=== PATIENT | female | born 1965 | race Caucasian/White ===

== ENCOUNTER → 2016-05-20 | Outpatient (CLI) | payer BC ==
[~2016-05-20] MED LIST: ACET1CAP16 PO; BCPILLS PO; CLA PO; COENZYME Q10 PO; MAGNESIUM PO; MISCCAP80 PO; MULT-506 PO; VITAMIN D PO; VITATAB8 PO; [UNRECOGNIZED DRUG - OTHER] PO; [UNRECOGNIZED DRUG - OTHER] PO
[2016-05-24 17:58] LABS: BEEF CLASS 0; BEEF IGE <0.10 KU/L; CHOCOLATE CLASS 0; CHOCOLATE IGE <0.10 KU/L; CLAM CLASS 0; CLAM IGE <0.10 KU/L; CORN CLASS 0; CORN IGE <0.10 KU/L; CRAB CLASS 0; CRAB IGE <0.10 KU/L; EGG MIX CLASS 0; EGG MIX IGE <0.10 KU/L; LOBSTER CLASS 0; LOBSTER IGE <0.10 KU/L; PEANUT IGE <0.10 KU/L; PORK CLASS 0; PORK IGE <0.10 KU/L; SHRIMP CLASS 0; SOY CLASS 0; SOY IGE <0.10 KU/L; WHEAT CLASS 0; WHEAT IGE <0.10 KU/L
== END | disposition home or self-care (01) ==
LOC: C.LAB 14:31
PROVIDERS: ATTEND Family Medicine
DX: E73.9 Lactose intolerance, unspecified (principal)

== ENCOUNTER → 2016-06-01 | Outpatient (CLI) | payer BC ==
[2016-06-01 14:40] LABS: BASO % 0.2 %; BASO ABS # 0.02 K/uL (0-0.2); COMPLETE YES; EOS % 1.5 %; IG% 0.1 %; LYMPH % 32.2 %; LYMPH ABS # 2.62 K/uL (1.2-3.4); MEAN CELL VOLUME 89.9 fL (80-100); MEAN CORPUSCULAR HEMOGLOBIN 31.3 pg (25-34); MEAN CORPUSCULAR HGB CONC 34.8 g/dl (32-36); MEAN PLATELET VOLUME 10.3 fL (7.4-10.4); MONO % 9.2 %; NEUT % 56.8 %; PLATELET COUNT 261 K/uL (130-400); RED BLOOD COUNT 3.67 M/uL (4.2-5.4); WHITE BLOOD COUNT 8.14 K/uL (4.8-10.8)
== END | disposition home or self-care (01) ==
LOC: C.LAB1850 13:51
PROVIDERS: ATTEND Internal Medicine
DX: D64.9 Anemia, unspecified (principal); R89.4 Abnormal immunological findings in specimens from other organs, systems and tissues

== ENCOUNTER → 2016-06-05 | Day surgery (SDC) | payer BC ==
[2016-05-27 10:11] VITALS: Ht 175.3 cm; Wt 70.5 kg
[~2016-06-05] VITALS: Ht 175.3 cm; Wt 70.5 kg
[~2016-06-05] MED LIST changes: +LIDOCAINE HCL 2% 2 ML VIAL (20MG/ML) ONE; +MIDAZOLAM HCL 1 MG/ML 2ML VIAL ONE; +PROPOFOL IV EMULSION 10 MG/ML 20 ML VIAL IV ONE
--- NOTE | 2016-06-05 08:52 | Endo History and Physical ---
History & Physical Date of Service: Jun 05, 2016. Chief Complaint: Anemia Referring Physician: Carolina Whipple History of Present Illness 50 yo CF who presents for screening colonoscopy. Past Surgical History Hx Cardiac Surgery: No Hx Internal Defibrillator: No Hx Pacemaker: No Hx Abdominal Surgery: Yes (APPY, OOPHORECTOMY, LAPAROSCOPY) Hx of Implantable Prosthesis: No Hx Post-Op Nausea and Vomiting: No Hx Cancer Surgery: No Hx Thoracic Surgery: No Hx Orthopedic: No Hx Urinary Tract Surgery: No Family History Colon CA, Polyp Social History Smoking Status: Never Smoker Hx Substance Use: No Hx Alcohol Use: Yes (OCCASSIONALLY ON WEEKENDS) Allergies Coded Allergies: No Known Allergies (Verified , 05/27/16) Current Medications Reported Home Medications Medications Dose Route/Sig Max Daily Dose Days Date Category [Magnesium] 3 Cap PO HS 05/27/16 Reported X-Suuvft-T-Cysteine (Acetylcysteine (Nutrient)) 600 Mg Cap 1 Cap PO HS 05/27/16 Reported Probiotic (Probiotic Product) 1 Cap Cap 1 Cap PO HS 05/27/16 Reported [Diindolylmethane] 1 Cap PO QAM 05/27/16 Reported [Coemzyme Q10] 1 Dose PO QAM 05/27/16 Reported [Cla] 1 Cap PO QAM 05/27/16 Reported [Boost Plexus] 2 Cap PO QAM 05/27/16 Reported D3 + K2 Dots (Vitamin D & K) 1 Tab Tab 1 Tab PO QAM 05/27/16 Reported [Vitamin D] 1 Tab PO DAILY AFTERNOON 05/27/16 Reported Multivitamin (Multivitamins) Tab 1 Tab PO BID 05/27/16 Reported Control Pills (Miscellaneous) Tab 1 Tab PO HS 05/27/16 Reported Vital Signs Weight (Kilograms): 70.45 Height (Feet): 5 Height (Inches): 9 Physical Exam General Appearance: WD/WN, no apparent distress Respiratory/Chest: Auscultation: breath sounds normal Cardiovascular: Heart Auscultation: RRR Abdomen: Bowel Sounds: normal Inspection & Palpation: soft, non-distended, no tenderness, guarding & rebound Assessment and Plan Assessment: 50 yo CF who presents for screening colonoscopy. Plan: Proceed with colonoscopy.
[2016-06-05 08:58] VITALS: TEMP 36.8
--- NOTE | 2016-06-05 09:36 | Discharge Instructions ---
Endoscopy Patient Instructions Date / Procedure(s) Performed Jun 05, 2016. Colonoscopy Allergy Information Coded Allergies: No Known Allergies (Verified , 05/27/16) Discharge Date / Findings Jun 05, 2016. Internal hemorrhoids Medication Instructions OK to resume all medications today as prescribed Reported Home Medications Medications Dose Route/Sig Max Daily Dose Days Date Category [Magnesium] 3 Cap PO HS 05/27/16 Reported I-Dntanq-F-Cysteine (Acetylcysteine (Nutrient)) 600 Mg Cap 1 Cap PO HS 05/27/16 Reported Probiotic (Probiotic Product) 1 Cap Cap 1 Cap PO HS 05/27/16 Reported [Diindolylmethane] 1 Cap PO QAM 05/27/16 Reported [Coemzyme Q10] 1 Dose PO QAM 05/27/16 Reported [Cla] 1 Cap PO QAM 05/27/16 Reported [Boost Plexus] 2 Cap PO QAM 05/27/16 Reported D3 + K2 Dots (Vitamin D & K) 1 Tab Tab 1 Tab PO QAM 05/27/16 Reported [Vitamin D] 1 Tab PO DAILY AFTERNOON 05/27/16 Reported Multivitamin (Multivitamins) Tab 1 Tab PO BID 05/27/16 Reported Control Pills (Miscellaneous) Tab 1 Tab PO HS 05/27/16 Reported Provider Instructions Activity Restrictions - No exercising or heavy lifting for 24 hours. - Do not drink alcohol the day of the procedure. - Do not drive a car or operate machinery until the day after the procedure. - Do not make any important decisions or sign important papers in 24 hours after the procedure. Following Day: - Return to full activity which may include returning to work/school. Diet Start your diet with liquids and light foods (jello, soup, juice, toast). Then eat your usual diet if not nauseated. Treatment For Common After Affects For mild abdominal pain, bloating, or excessive gas: - Rest - Eat lightly - Lie on right side Follow-Up Information Follow-up with Dr. Carolina Solorzano as scheduled Anesthesia Information What You Should Know You have had a procedure that required some medicine to reduce anxiety and discomfort. This treatment is called moderate sedation. After receiving the treatment, you may be sleepy, but you will be able to breathe on your own. The effects of the treatment may last for several hours. Follow these instructions along with Activity/Diet recommendations noted above: * Do NOT do anything where dizziness or clumsiness would be dangerous. * Rest quietly at home today, then you can be up and about tomorrow. * Have a responsible person stay with you the rest of today. * You may have had an I.V. today. If so, you may take the dressing off later today. Recommendations Call your doctor if: * Trouble breathing * Continuous vomiting for more than 24 hours * Temperature above 101 degrees * Severe abdominal pain or bloating * Pain not relieved by pain medicine ordered * There is increased drainage or redness from any incision * A large amount of rectal bleeding greater than 2-3 tablespoons. (If you had a polyp/s removed or have hemorrhoids, a small amount of blood - from the rectum is to be expected.) * You have any unanswered questions or concerns. IN THE EVENT OF A SERIOUS EMERGENCY, GO TO THE NEAREST EMERGENCY ROOM Your discharge instructions were prepared by provider Victoriano Lazcano. Patient Instructions Signature Page Ce Valdez Patient (or Guardian) Signature/Date: I have read and understand the instructions given to me by my caregivers. Caregiver/RN/Doctor Signature/Date: The above-named patient and/or guardian has received patient instructions on this date. + Original Patient Signature Page (only) stays with chart. Please make copy for patient.
--- NOTE | 2016-06-05 09:41 | GI REPORT ---
Procedure Date: 06/05/2016 9:11 AM Procedure: Colonoscopy Indications: Screening for colorectal malignant neoplasm Medicines: Monitored Anesthesia Care Complications: No immediate complications. Estimated Blood Loss: Estimated blood loss: none. Procedure: Pre-Anesthesia Assessment: - Prior to the procedure, a History and Physical was performed, and patient medications and allergies were reviewed. The patient's tolerance of previous anesthesia was also reviewed. The risks and benefits of the procedure and the sedation options and risks were discussed with the patient. All questions were answered, and informed consent was obtained. Prior Anticoagulants: The patient has taken no previous anticoagulant or antiplatelet agents. ASA Grade Assessment: II - A patient with mild systemic disease. After reviewing the risks and benefits, the patient was deemed in satisfactory condition to undergo the procedure. After I obtained informed consent, the scope was passed under direct vision. Throughout the procedure, the patient's blood pressure, pulse, and oxygen saturations were monitored continuously. The Scope was introduced through the anus and advanced to the terminal ileum. The colonoscopy was performed without difficulty. The patient tolerated the procedure well. The quality of the bowel preparation was good. The terminal ileum, ileocecal valve, appendiceal orifice, and rectum were photographed. Findings: Non-bleeding internal hemorrhoids were found during retroflexion. The hemorrhoids were small. The exam was otherwise without abnormality. Impression: - Non-bleeding internal hemorrhoids. - The examination was otherwise normal. - No specimens collected. Recommendation: - Resume previous diet. - Continue present medications. - Repeat colonoscopy in 10 years for surveillance. - Return to primary care physician as previously scheduled. Victoriano Lazcano DO 06/05/2016 9:40:40 AM This report has been signed electronically. Note Initiated On: 06/05/2016 9:11 AM
--- NOTE | 2016-06-05 10:05 | Anesthesia Progress Nt - [facility] ---
Anesthesia Post Op Note Date & Time Jun 05, 2016 at 10:06 Vital Signs Pain Intensity: 0 Vital Signs Past 12 Hours Date Time Temp Pulse Resp B/P Pulse Ox O2 Delivery O2 Flow Rate FiO2 06/05/16 09:53 82 16 109/60 100 Room Air 06/05/16 09:38 65 16 98/53 100 Room Air 06/05/16 08:58 36.8 69 18 104/63 100 Room Air Notes Mental Status: alert / awake / arousable, participated in evaluation Pt Amnestic to Procedure: Yes Nausea / Vomiting: adequately controlled Pain: adequately controlled Airway Patency, RR, SpO2: stable & adequate BP & HR: stable & adequate Hydration State: stable & adequate Anesthetic Complications: no major complications apparent
[2016-06-05 10:08] VITALS: BP 100/73; PULSE 70; O2SAT 99
== END | disposition home or self-care (01) ==
LOC: C.GI 08:37
PROVIDERS: ATTEND Internal Medicine
DX: Z12.11 Encounter for screening for malignant neoplasm of colon (principal); K64.8 Other hemorrhoids; D64.9 Anemia, unspecified; Z83.71 Family history of colonic polyps; Z80.0 Family history of malignant neoplasm of digestive organs

== ENCOUNTER → 2016-06-18 | Outpatient (CLI) | payer BC ==
[~2016-06-18] MED LIST changes: -LIDOCAINE HCL 2% 2 ML VIAL (20MG/ML) ONE; -MIDAZOLAM HCL 1 MG/ML 2ML VIAL ONE; -PROPOFOL IV EMULSION 10 MG/ML 20 ML VIAL IV ONE
[2016-06-18 11:16] LABS: BASO % 0.4 %; BASO ABS # 0.03 K/uL (0-0.2); COMPLETE YES; EOS % 3.8 %; HEMATOCRIT 37.8 % (37-47); IG% 0.4 %; LYMPH ABS # 2.73 K/uL (1.2-3.4); MEAN CORPUSCULAR HGB CONC 34.4 g/dl (32-36); MEAN PLATELET VOLUME 10.5 fL (7.4-10.4); MONO % 13.2 %; NEUT % 46.2 %; PLATELET COUNT 269 K/uL (130-400); WHITE BLOOD COUNT 7.58 K/uL (4.8-10.8)
[2016-06-18 11:49] LABS: FERRITIN 45.6 ng/ml (8.0-388.0); THYROID STIMULATING HORMONE 0.945 uIu/ml (0.300-4.500)
== END | disposition home or self-care (01) ==
LOC: C.LAB1850 10:34
PROVIDERS: ATTEND Family Medicine
DX: D64.9 Anemia, unspecified (principal); R53.83 Other fatigue

== ENCOUNTER → 2016-07-30 | Outpatient (CLI) | payer BC ==
[2016-07-30 15:55] LABS: BASO % 0.2 %; BASO ABS # 0.02 K/uL (0-0.2); COMPLETE YES; EOS % 2.7 %; HEMATOCRIT 35.6 % (37-47); IG% 0.1 %; LYMPH % 32.6 %; LYMPH ABS # 2.63 K/uL (1.2-3.4); MEAN CELL VOLUME 90.6 fL (80-100); MEAN CORPUSCULAR HEMOGLOBIN 30.5 pg (25-34); MEAN CORPUSCULAR HGB CONC 33.7 g/dl (32-36); MEAN PLATELET VOLUME 10.5 fL (7.4-10.4); MONO % 11.4 %; PLATELET COUNT 304 K/uL (130-400); RED BLOOD COUNT 3.93 M/uL (4.2-5.4); WHITE BLOOD COUNT 8.06 K/uL (4.8-10.8)
[2016-07-30 16:13] LABS: BLOOD UREA NITROGEN 16 mg/dl (7-18); BUN/CREATININE RATIO 19.8 (10-20); CALCIUM 9.3 mg/dl (8.5-10.1); CARBON DIOXIDE 26 mmol/L (21-32); CHLORIDE 105 mmol/L (98-107); CREATININE 0.83 mg/dl (0.60-1.20); GLUCOSE 90 mg/dl (70-99); POTASSIUM 3.9 mmol/L (3.5-5.1); SODIUM 138 mmol/L (136-145)
[2016-07-30 16:17] LABS: FERRITIN 35.1 ng/ml (8.0-388.0)
== END | disposition home or self-care (01) ==
LOC: C.LAB1850 15:15
PROVIDERS: ATTEND Internal Medicine Hematology & Oncology
DX: D64.9 Anemia, unspecified (principal); R53.83 Other fatigue

== ENCOUNTER → 2016-08-27 | Outpatient (CLI) | payer BC ==
--- NOTE | 2016-08-27 11:21 | DIAGNOSTIC IMAGING REPORT ---
BILIARY ULTRASOUND CLINICAL HISTORY: D18.03 Liver [id number] COMPARISON STUDY: 12/02/2015 FINDINGS: The pancreas appears sonographically normal. There is an 9 mm echogenic focus within the right lobe of the liver. This is consistent with although not specific for a hepatic hemangioma. This appears slightly larger than on the preceding study. The gallbladder appears sonographically normal. There is no ductal dilatation. The common bile duct measures 3 mm. There is no right-sided hydronephrosis. IMPRESSION: 1. Slight interval increase in the size of the 9 mm echogenic focus within the right lobe of the liver. This is consistent with although not specific for a hepatic hemangioma. Electronically signed by: Marcellus Choe M.D. 08/27/2016 11:20 AM Dictated Date/Time: 08/27/2016 11:18 AM
== END | disposition home or self-care (01) ==
LOC: C.ULTR 10:29
PROVIDERS: ATTEND Family Medicine
DX: D18.03 Hemangioma of intra-abdominal structures (principal)

== ENCOUNTER → 2016-09-03 | Outpatient (CLI) | payer BC ==
--- NOTE | 2016-09-03 12:43 | DIAGNOSTIC IMAGING REPORT ---
LIVER SCAN RBC TAG STUDY CLINICAL HISTORY: Liver hemangioma. COMPARISON STUDY: Right upper quadrant ultrasound December 02, 2015 and August 27, 2016. TECHNIQUE: 25.158 mCi of technetium 99m UltraTag was injected IV at 10:40 AM on September 03, 2016. Flow and static images were obtained in multiple projections. FINDINGS: No areas of increased or decreased radiotracer uptake are identified within the liver. There is no abnormality on this exam to correspond to the echogenic lesion shown within the right hepatic lobe on ultrasound of August 27, 2016. No abnormalities are identified on this exam. IMPRESSION: No hepatic lesions identified by scintigraphy. No finding to correspond to the echogenic right hepatic lobe lesion on prior ultrasound although this lesion may be below size threshold. Evaluate by tagged red blood cell scan. This lesion remains indeterminate although a hemangioma is favored based on the sonographic appearance. A follow-up ultrasound could be obtained in 6 months. Electronically signed by: Saran Cameron M.D. 09/03/2016 12:42 PM Dictated Date/Time: 09/03/2016 12:36 PM
== END | disposition home or self-care (01) ==
LOC: C.NUCL 09:57
PROVIDERS: ATTEND Registered Nurse
DX: D18.03 Hemangioma of intra-abdominal structures (principal)

== ENCOUNTER → 2016-09-18 | Outpatient (CLI) | payer BC ==
--- NOTE | 2016-09-18 14:53 | MAMMOGRAPHY REPORT ---
BILATERAL DIGITAL SCREENING MAMMOGRAM TOMOSYNTHESIS WITH CAD: 09/18/2016 CLINICAL HISTORY: Routine screening. Patient has no complaints. TECHNIQUE: Breast tomosynthesis in addition to standard 2D mammography was performed. Current study was also evaluated with a Computer Aided Detection (CAD) system. COMPARISON: Comparison is made to exams dated: 09/13/2015 mammogram, 09/10/2014 mammogram, 05/22/2013 ma mmogram, 04/25/2012 mammogram, 01/29/2011 mammogram, and 11/29/2009 mammogram - [facility]. BREAST COMPOSITION: The tissue of both breasts is heterogeneously dense, which may obscure small ma sses. FINDINGS: No suspicious masses, calcifications, or areas of architectural distortion are noted in e ither breast. There has been no significant interval change compared to prior exams. A linear scar marker denotes a scar on the left upper outer breast. IMPRESSION: ACR BI-RADS CATEGORY 2: BENIGN There is no mammographic evidence of malignancy. A 1 year screening mammogram is recommended. The p atient will receive written notification of the results. Approximately 10% of breast cancers are not detected with mammography. A negative mammographic repor t should not delay biopsy if a clinically suggestive mass is present. Mona Matute M.D. ah/:09/18/2016 13:54:42 Body Line Finisher: Gogo POSEY(Blanca)(Joel)([place]), [facility] letter sent: Normal 1/2 BI-RADS Code: ACR BI-RADS Category 2: Benign
== END | disposition home or self-care (01) ==
LOC: C.MAMM 13:21
PROVIDERS: ATTEND Obstetrics & Gynecology
DX: Z12.31 Encounter for screening mammogram for malignant neoplasm of breast (principal)

== ENCOUNTER → 2016-12-21 | Outpatient (CLI) | payer BC | END | disposition home or self-care (01) | LOC: C.PAPS 08:35 | PROVIDERS: ATTEND Obstetrics & Gynecology | DX: Z01.419 Encounter for gynecological examination (general) (routine) without abnormal findings (principal) ==

== ENCOUNTER → 2017-12-22 | Outpatient (CLI) | payer BC | END | disposition home or self-care (01) | LOC: C.PAPS 13:36 | PROVIDERS: ATTEND Obstetrics & Gynecology | DX: Z01.411 Encounter for gynecological examination (general) (routine) with abnormal findings (principal); R87.610 Atypical squamous cells of undetermined significance on cytologic smear of cervix (ASC-US) ==